=== PATIENT | male | born 1950 | race Caucasian/White ===

== ENCOUNTER 2017-03-09 05:25 | Inpatient (IN) | payer OTHER ==
[2017-02-22 08:48] LABS: URINE BILIRUBIN NEGATIVE (Negative); URINE BLOOD NEGATIVE (Negative); URINE COLOR YELLOW; URINE GLUCOSE-RANDOM* NEGATIVE (Negative); URINE KETONES NEGATIVE (Negative); URINE LEUKOCYTES-REFLEX NEGATIVE (Negative); URINE PROTEIN (DIPSTICK) NEGATIVE (Negative); URINE SPECIFIC GRAVITY >= 1.030 (1.003-1.035); URINE UROBILINOGEN 0.2 E.U./dl (0.2-1.0)
[2017-02-22 09:00] LABS: HEMATOCRIT 39.2 % (42.0-52.0); HEMOGLOBIN 13.1 gm/dL (14.0-18.0); MCH 27.4 pg (26.0-34.0); MCHC 33.3 g/dL (28.0-37.0); MCV 82.1 fL (80.0-100.0); RBC 4.77 mil/uL (4.50-6.00); RDW 14.9 % (10.5-14.5); WBC 5.4 thou/uL (4.0-11.0)
[2017-02-22 09:14] LABS: INR 2.4; PROTIME 24.1 Seconds (9.3-11.4)
[2017-02-22 09:20] LABS: ALBUMIN 3.5 g/dL (3.4-5.0); CALCIUM 8.5 mg/dL (8.5-10.1); POTASSIUM 4.4 mmol/L (3.5-5.1)
[~2017-03-09] VITALS: Ht 177.8 cm; Wt 122.5 kg
--- NOTE | ~2017-03-09 | O ---
[facility] [place] [address] OPERATIVE REPORT Name: DEMARIO SOW Room #: 150-4 [facility] IN M.R.#: [id number] Admission: 03/09/17 Attend Phys: Arturo Ken MD Discharge: Date of : 50 Report #: [id number] THIS REPORT FOR: //name// CC: Juvencio Ken DATE OF SERVICE: 03/09/2017 PREOPERATIVE DIAGNOSIS: Right medial compartment knee osteoarthritis. POSTOPERATIVE DIAGNOSIS: Right medial compartment knee osteoarthritis. PROCEDURE: Right unicompartmental knee arthroplasty. SURGEON: Arturo Ken MD. AIRCRAFT CABIN CLEANER: Violette Bloom PA-C. ANESTHESIA: LMA with an adductor canal block. IMPLANTS: [employer] Hawkins twin peg size medium femur, size C tibia and a size 4 polyethylene. TOURNIQUET TIME: 65 minutes. ESTIMATED BLOOD LOSS: 25 mL. COMPLICATIONS: None. SPECIMENS: None. CONDITION UPON LEAVING THE OPERATING ROOM: Stable. INDICATIONS FOR PROCEDURE: The patient is a 66-year-old gentleman who has severe right knee medial compartment osteoarthritis. He failed conservative treatment for this and after discussion with him, he elected for unicompartmental knee arthroplasty. DESCRIPTION OF PROCEDURE: Risks, benefits, alternatives, complications were discussed in detail with the patient including but not limited to risk of anesthesia, risk of damage to nerves, arteries, blood vessels, risk for infection, bleeding, risk for continued knee pain and need for reoperation. Informed consent was obtained from the patient. Right knee was appropriately marked in the preoperative holding area. IV Ancef was given for preoperative antibiotics. Adductor canal block was placed by anesthesia. He was brought to the operating room and placed in supine position on operating room table. [address] [address] OPERATIVE REPORT Name: DEMARIO SOW Room #: 150-4 ADM IN M.R.#: [id number] Admission: 03/09/17 Attend Phys: Arturo Ken MD Discharge: Date of : 50 Report #: [id number] anesthesia was induced without complication. Tourniquet was placed on the right thigh. Right lower extremity was prepped and draped in normal sterile fashion. Timeout was performed properly identifying the patient and procedure as well as the instrumentation and implants. All in the operating room were in agreement. Right lower extremity was exsanguinated, tourniquet was inflated. Tourniquet time was 65 minutes. Standard medial approach to the knee was made with 10 blade through the skin. Dissection was taken down sharply to the fascia and deep flaps were developed medially and laterally. Fresh 10 blade was used to make a medial parapatellar arthrotomy and the knee was inspected. There was severe medial compartment osteoarthritic change. Lateral compartment and patellofemoral compartment were well maintained. The anterior horn of the meniscus was removed sharply. Fat pad was removed sharply. The tibial resection guide was then pinned in place using the articulating jig from the femur using a size medium femur. Tibial resection was made. Flexion gap was then checked and found to be a 4. Drill was used to gain access to the canal of the femur and the guide for the femoral component was then aligned to the intramedullary li using the articulating jig. The drill holes for the twin pegs were then made. Posterior femoral resection was made and the zero spigot was placed and the femur was milled. Flexion and extension gaps were then checked and found to be a 4 in flexion and 0 in extension. The size 4 spigot was placed and the femur was milled. The trial components were placed again and found to have good balance in flexion and extension. The keel cut for the tibia was then made and a keeled tibial trial was placed, femoral trial was placed and a size 4 polyethylene trial was placed. Knee was taken through range of motion, found to be stable, found to have good balance in flexion and extension. Trial components were removed. Bony ends were thoroughly irrigated with normal saline. Final size C tibia and a size medium femur were cemented in place using standard cementation techniques. After the cement cured, the knee was thoroughly irrigated. Periarticular injection consisting of ropivacaine, epinephrine, Toradol and morphine was placed around the knee joint. Final size 4 polyethylene was placed. A gram of vancomycin was placed deep in the knee joint. The fascia was closed with 0 Vicryl, skin was closed with 2-0 Vicryl, 3-0 Monocryl, Dermabond and Aquacel were applied. The patient tolerated this procedure well and went to the recovery room under the care of anesthesia postoperatively. By: [id number] Arturo Ken MD /delano
--- NOTE | ~2017-03-09 | EKG ---
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 : 1950 Requested By: Arturo Ken Order Number: [id number] MD: Triston Mckeon Measurements Intervals [place] Rate: 72 P: 57 WA: 154 QRS: 4 QRSD: 74 T: 100 QT: 369 QTc: 404 Interpretive Statements Sinus arrhythmia Ventricular premature complex Nonspecific T abnormalities Compared to ECG 09/07/2015 12:16:23 Ventricular premature complex(es) now present Electronically Signed On 02-23-2017 8:54:40 CDT by Triston Mckeon [email or web address] <ELECTRONICALLY SIGNED> By: Triston Mckeon MD, [facility] 02/23/17 0854 5 Triston Mckeon MD, FACC /EPI
[~2017-03-09 05:25] MED LIST: ALBUTEROL2.5 MG/31 IH; ALPRAZOLAM 0.0.25 M1 PO; ASPERCREME76.5 GM TP; CELEBREX 200 M200 M1 PO; CELEBREX 200 M200 MG PO; CELLCEPT500 MG PO; COUMADIN 2.5MG2.5 M1 PO; COUMADIN 5 MG TA5 M1 PO; COZAAR100 MG PO; CRESTOR10 MG PO; CYMBALTA60 MG PO; DIOVAN160 MG PO; ECHINACEA500 MG PO; ENOXAPARIN40 MG/0.1; GINKGO BILOBA500 MG PO; HYDROCODON-ACE1 EAC7 PO; HYDROCODONE-AP1 EAC6 PO; LEXAPRO20 MG PO; LOVENOX SQ; MODAFINIL200 MG PO; MULTIVITAMINS PO; NUVIGIL PO; PERCOCET 10-321 EACH; PREDNISONE 5 MG5 M1 PO; TAMSULOSIN HCL0.4 MG PO; TESSALON200 MG PO; TYLENOL325 MG PO; VITAMIN D-32000 UNIT PO; VITAMIN D1000 UNI1 PO; ZANAFLEX4 MG PO; ZOCOR40 MG PO; ZPAK PO
[2017-03-09 07:29] VITALS: BP 135/82
[2017-03-09 07:30] LABS: INR 1.2; PROTIME 12.7 Seconds (9.3-11.4)
[2017-03-09 11:59] VITALS: BP 114/92
[2017-03-09 12:30] VITALS: BP 134/60
[2017-03-09 13:00] VITALS: BP 116/51
[2017-03-09 13:30] VITALS: BP 121/56
[2017-03-09 20:02] VITALS: BP 114/63
[2017-03-10] VITALS (7 sets, daily range): BP systolic 111–150; BP diastolic 60–73
[2017-03-10 04:52] LABS: HEMATOCRIT 36.9 % (42.0-52.0); MCH 26.9 pg (26.0-34.0); MCHC 32.4 g/dL (28.0-37.0); MCV 82.8 fL (80.0-100.0); RBC 4.45 mil/uL (4.50-6.00); RDW 14.9 % (10.5-14.5); WBC 11.8 thou/uL (4.0-11.0)
[2017-03-10] MEDS ORDERED: MS CONTIN15 MG PO (08:39)
[2017-03-10] MEDS ORDERED: PERCOCET PO (08:39)
[2017-03-10] MEDS ORDERED: NEURONTIN 300300 M1 PO (08:39)
== END 2017-03-10 14:12 | disposition home or self-care (01) | DRG 470 ==
LOC: TBA 05:25 → 4N 05:25 → PRE 08:11 → 4N 11:39 → PRE 12:39 → ENTRNSPT 03-10 14:04 → EDTRNSPTSTS 03-10 14:09 → 4N 03-10 14:12
PROVIDERS: Anesthesiology; Orthopaedic Surgery
PROC: 0SRC0L9 Replacement of Right Knee Joint with Medial Unicondylar Synthetic Substitute, Cemented, Open Approach (ICD-10-PCS; principal; 2017-03-09)
DX: M17.11 Unilateral primary osteoarthritis, right knee (principal)
CPT/HCPCS: 10790; 50010; 50101; 50415; 50612; 51130; 51225; 51771; 52056; 53078; 53370; 54118; 55262; 56527; 56528; 57095; 62110; 62900; 64042; 64043; 70005

== ENCOUNTER → 2020-09-24 | Outpatient (CLI) | payer OTHER ==
[~2020-09-24] MED LIST changes: +MS CONTIN15 MG PO; +NEURONTIN 300300 M1 PO; +PERCOCET PO
== END ==
LOC: SJCVCIMAG 10:33
PROVIDERS: ATTEND Family Medicine
DX: I35.8 Other nonrheumatic aortic valve disorders (principal); R06.00 Dyspnea, unspecified; I10 Essential (primary) hypertension; R60.0 Localized edema